=== PATIENT | male | born 1990 | race Two or more races ===

== ENCOUNTER 2022-08-01 08:00 | Outpatient (CLI) | payer OTHER ==
--- NOTE | 2022-08-01 16:51 | XRAY Report ---
PROCEDURE: Shoulder 2 View RT INDICATIONS: R SHOULDER PX TECHNIQUE: 2 views of the shoulder were acquired. COMPARISON: None. FINDINGS: Bones: No fractures or dislocations. No suspicious bony lesions. Visualized ribs appear intact. Soft tissues: No suspicious soft tissue calcifications. IMPRESSION: Negative right shoulder. Reviewed by: Jason Hinds MD on 08/01/2022 4:50 PM PST Approved by: Jason Hinds MD on 08/01/2022 4:50 PM PST Station ID: [id number]
== END 2022-08-01 23:59 | disposition home or self-care (01) ==
LOC: DI.N 08:00
PROVIDERS: ATTEND Nurse Practitioner
DX: M25.511 Pain in right shoulder (principal)